=== PATIENT | female | born 1955 | race African-American/Black ===

== ENCOUNTER → 2016-11-23 | Outpatient (CLI) | payer BC ==
[~2016-11-23] MED LIST: CALCIUM 500 +1 EAC2 PO; DARVOCET-N 1001 TAB PO; DYAZIDE 37.5/251 CAP PO; LISINOPRIL-HCTZ1 T19 PO; NABUMETONE PO; VICODIN 5/500 T1 TAB PO; ZYRTEC10 M1 PO
--- NOTE | ~2016-11-23 | CT55 ---
[facility] A Service of [facility] & [facility] RADIOLOGY TEXT RESULTS PATIENT: VIRGINIA CANAS LOCATION: CCAT : 53 UNIT #: [id number] AGE: [address]: Noé Banda MD SEX: F ORDER DR: [id number] [facility] [address] [place], [place] [address] [id number] O MR#: [id number] Acc #: [id number] NAME: VIRGINIA CANAS : 1955 SEX: F STUDY DATE/TIME: 11/23/2016 8:05 UNIT: CCAT ROOM: STUDY DESCRIPTION: CT Chest W Con Attending Physician: Noé Banda M.D., Ph.D. Ordering Physician: Noé Banda M.D., Ph.D. Primary Care Physician: Clarisse Gupta M.D. MEDICAL IMAGING REPORT This report is preliminary unless electronic signature is present EXAM CT chest with contrast. INDICATION Malignant neoplasm of the lower inner quadrant of the left female breast. Metastatic disease of the bone and liver. Restaging. Observation for metastatic disease. TECHNIQUE CT of the chest utilizing 100 mL Isovue-370 IV contrast. Coronal and sagittal reconstructions were obtained. This CT exam was performed with one or more of the following radiation dose reduction techniques: automatic exposure control, adjustment of mA and/or kV according to patient size, and iterative reconstruction. COMPARISON Concurrent CT abdomen dated 11/23/[address] chest and abdomen dated 09/20/2016. FINDINGS A small triangular shaped nodule in the periphery of the right upper lobe (image 19) is unchanged from the prior exam of 09/20/2016 and 04/01/2016. No new pulmonary opacities. There is some linear scarring or atelectasis in the left lung base associated with some pleural thickening/small effusion. The overall appearance is stable. No pathologically enlarged mediastinal or hilar lymph nodes. Pleural nodularity/mediastinal lymphadenopathy near adjacent to the arch vessels is similar to the prior study measuring 1.9 x 1.4 cm, compared to 2.2 x 1.6 cm. The patient is status post left mastectomy. Please refer to the separately dictated report for details on the abdomen. [facility] A Service of [facility] & [facility] RADIOLOGY TEXT RESULTS PATIENT: VIRGINIA CANAS LOCATION: CCAT : 53 UNIT #: [id number] AGE: [address]: Noé Banda MD SEX: F ORDER DR: Diffuse osteolytic lesions are identified throughout the axial skeleton. The overall appearance is fairly similar to the prior study. No pathologic fractures are identified. IMPRESSION 1. No evidence of disease progression. 2. 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 3. Small right upper lobe pulmonary nodule, mild left pleural thickening, and small left pleural/superior mediastinal lymph node are all unchanged from the prior study. Dictated by... Kenny Dallas M.D. THIS IS AN ELECTRONICALLY VERIFIED REPORT Kenny Dallas M.D. at 11/23/2016 10:58 AM MAYLIN/chris TD: 11/23/2016 09:19 JOB #: [id number] MEDICAL IMAGING REPORT COPY
--- NOTE | ~2016-11-23 | CT5 ---
[facility] A Service of [facility] & [facility] RADIOLOGY TEXT RESULTS PATIENT: VIRGINIA CANAS LOCATION: CCAT : 53 UNIT #: [id number] AGE: [address]: Noé Banda MD SEX: F ORDER DR: [id number] [facility] [address] [place], [place] [address] [id number] O MR#: [id number] Acc #: [id number] NAME: VIRGINIA CANAS : 1955 SEX: F STUDY DATE/TIME: 11/23/2016 8:05 UNIT: CCAT ROOM: STUDY DESCRIPTION: CT Abdomen W Cont Attending Physician: Noé Banda M.D., Ph.D. Ordering Physician: Noé Banda M.D., Ph.D. Primary Care Physician: Clarisse Gupta M.D. MEDICAL IMAGING REPORT This report is preliminary unless electronic signature is present INDICATION Malignant neoplasm of the lower inner quadrant of the left female breast. Restaging. Observation for metastatic disease. Metastatic disease of the bone and liver. TECHNIQUE CT of the abdomen with 100 mL Isovue-370 IV contrast. Coronal and sagittal reconstructions were obtained. This CT exam was performed with one or more of the following radiation dose reduction techniques: automatic exposure control, adjustment of mA and/or kV according to patient size, and iterative reconstruction. COMPARISON CT abdomen, 09/20/2016 FINDINGS There has been slight improvement in multiple hepatic metastatic foci. An index lesion in the anterior right hepatic lobe measures 1.5 cm compared to 1.5 cm previously. A lesion in the superior right hepatic lobe measures 2.0 cm compared to 2.3 cm previously. A third lesion in the posterior right hepatic lobe near the diaphragm measures 1.3 cm compared to 1.7 cm previously. No new lesions are identified. The gallbladder is surgically absent. Pancreas, spleen, and adrenal glands are unchanged. There are filling defects within the left renal vein indicating renal vein thrombosis. In retrospect, these findings were present on the study from 09/20/2016 indicating remote thrombus. The bowel is not dilated. No enlarged retroperitoneal or mesenteric lymph nodes. The abdominal aorta is normal in caliber. There is asymmetric atrophy of STS. [facility] A Service of [facility] & [facility] RADIOLOGY TEXT RESULTS PATIENT: VIRGINIA CANAS LOCATION: CCAT : 53 UNIT #: [id number] AGE: [address]: Noé Banda MD SEX: F ORDER DR: the right rectus muscle above the umbilicus. There is diffuse osseous metastatic disease throughout the axial skeleton. No pathologic fractures are identified. The overall appearance has not significantly changed from the prior study. IMPRESSION 1. Partial response to therapy. Multiple lesions throughout the liver are either stable to slightly decreased in size compared to the 09/20/2016 exam. 2. Diffuse osseous metastatic disease throughout the axial skeleton has not significantly changed. No pathologic fractures. 3. There are filling defects within the left renal veins at the renal hilum. This is indicative of renal vein thrombosis. In retrospect, these small filling defects were present on the 09/20/2016 exam. This is felt to be subacute to chronic thrombus. Dictated by... Kenny Dallas M.D. THIS IS AN ELECTRONICALLY VERIFIED REPORT Kenny Dallas M.D. at 11/23/2016 10:58 AM Pito TD: 11/23/2016 09:15 JOB #: [id number] MEDICAL IMAGING REPORT COPY
[2016-11-23 09:26] LABS: POC - CREATININE 0.71 mg/dL (0.44-1.03); POC - GFR >60.0 mL/min (>60)
== END | disposition home or self-care (01) ==
LOC: CCAT 07:02
PROVIDERS: Internal Medicine Hematology & Oncology
DX: C79.51 Secondary malignant neoplasm of bone (principal); C50.312 Malignant neoplasm of lower-inner quadrant of left female breast; K76.89 Other specified diseases of liver; J92.9 Pleural plaque without asbestos; R91.1 Solitary pulmonary nodule
CPT/HCPCS: 71260; 74160; 82565; J1642; Q9967

== ENCOUNTER → 2017-03-26 | Outpatient (CLI) | payer BC ==
--- NOTE | ~2017-03-26 | CT5 ---
[facility] A Service of [facility] RADIOLOGY TEXT RESULTS PATIENT: VIRGINIA CANAS LOCATION: CCAT : 53 UNIT #: [id number] AGE: [address]: Noé Banda MD SEX: F ORDER DR: [id number] [place], [place] [address] [id number] O MR#: [id number] Acc #: [id number] NAME: VIRGINIA CANAS : 1955 SEX: F STUDY DATE/TIME: 03/26/2017 13:52 UNIT: CCAT ROOM: STUDY DESCRIPTION: CT Abdomen W Cont Attending Physician: Noé Banda M.D., Ph.D. Referring Physician: Noé Banda M.D., Ph.D. Ordering Physician: Noé Banda M.D., Ph.D. Primary Care Physician: Clarisse Gupta M.D. MEDICAL IMAGING REPORT This report is preliminary unless electronic signature is present EXAM CT abdomen with contrast INDICATION Restaging breast cancer. Observation for metastatic disease. PROCEDURE Contrast-enhanced CT of the abdomen. This CT exam was performed with one or more of the following radiation dose reduction techniques: automatic exposure control, adjustment of mA and/or kV according to patient size, and iterative reconstruction. COMPARISON 11/23/2016 FINDINGS Refer to the separately dictated chest CT for thoracic findings. Low-attenuation liver lesions are very similar to the prior. Lesion in the central liver towards the dome measures 2 cm. No discretely new liver lesion. The spleen, kidneys, adrenal glands, pancreas unremarkable. Previous cholecystectomy. Included bowel loops are nondilated. No new or enlarging abdominal adenopathy. Diffuse sclerotic osseous bone lesions are not significantly changed. IMPRESSION [facility] A Service of [facility] RADIOLOGY TEXT RESULTS PATIENT: VIRGINIA CANAS LOCATION: CCAT : 53 UNIT #: [id number] AGE: [address]: Noé Banda MD SEX: F ORDER DR: 1. No evidence for disease progression. 2. Hepatic lesions are not significantly changed from the previous study and there is no evidence for new metastatic disease in the abdomen. Dictated by... Kris Walker M.D. THIS IS AN ELECTRONICALLY VERIFIED REPORT Kris Walker M.D. at 03/27/2017 7:13 AM REBECA/darrian TD: 03/27/2017 05:04 JOB #: [id number] MEDICAL IMAGING REPORT Page 1 of 1 COPY
--- NOTE | ~2017-03-26 | CT55 ---
[facility] A Service of [facility] RADIOLOGY TEXT RESULTS PATIENT: VIRGINIA CANAS LOCATION: CCAT : 53 UNIT #: [id number] AGE: [address]: Noé Banda MD SEX: F ORDER DR: [id number] [place], [place] [address] [id number] O MR#: [id number] Acc #: [id number] NAME: VIRGINIA CANAS : 1955 SEX: F STUDY DATE/TIME: 03/26/2017 13:52 UNIT: CCAT ROOM: STUDY DESCRIPTION: CT Chest W Con Attending Physician: Noé Banda M.D., Ph.D. Referring Physician: Noé Banda M.D., Ph.D. Ordering Physician: Noé Banda M.D., Ph.D. Primary Care Physician: Clarisse Gupta M.D. MEDICAL IMAGING REPORT This report is preliminary unless electronic signature is present EXAM CT chest with contrast INDICATION Restaging breast cancer. Observation for metastatic disease. PROCEDURE Contrast-enhanced CT of the chest. This CT exam was performed with one or more of the following radiation dose reduction techniques: automatic exposure control, adjustment of mA and/or kV according to patient size, and iterative reconstruction. COMPARISON 11/23/2016 FINDINGS Left pleural thickening is not significantly changed. Right upper lobe subpleural nodule measures 7 mm and is stable. No new nodule. No adenopathy. Diffuse sclerotic osseous metastatic disease is similar to the previous study. IMPRESSION No evidence for disease progression. No significant change from 11/23/2016. Dictated by... Kris Walker M.D. THIS IS AN ELECTRONICALLY VERIFIED REPORT [facility] A Service [facility] RADIOLOGY TEXT RESULTS PATIENT: VIRGINIA CANAS LOCATION: CCAT : 53 UNIT #: [id number] AGE: [address]: Noé Banda MD SEX: F ORDER DR: Kris Walker M.D. at 03/27/2017 7:13 AM REBECA/darrian TD: 03/27/2017 03:00 JOB #: [id number] MEDICAL IMAGING REPORT Page 1 of 1 COPY
[2017-03-26 13:30] LABS: POC - CREATININE 0.82 mg/dL (0.44-1.03); POC - GFR >60.0 mL/min (>60)
== END | disposition home or self-care (01) ==
LOC: CCAT 12:35
PROVIDERS: Internal Medicine Hematology & Oncology
DX: C50.919 Malignant neoplasm of unspecified site of unspecified female breast (principal); C79.51 Secondary malignant neoplasm of bone; C50.312 Malignant neoplasm of lower-inner quadrant of left female breast; K76.9 Liver disease, unspecified
CPT/HCPCS: 71260; 74160; 82565; Q9967